=== PATIENT | female | born 1990 | race Caucasian/White ===

== ENCOUNTER 2017-06-03 22:52 | Emergency (ER) | payer BC, OTHER ==
[~2017-06-03] VITALS: Ht 168.9 cm; Wt 75.5 kg
[2017-06-03 23:05] VITALS: O2SAT 97; Ht 168.9 cm; Wt 75.5 kg
[2017-06-03 23:54] LABS: BASO % 0.6 %; BASO ABS # 0.03 K/uL (0-0.2); COMPLETE YES; EOS % 4.4 %; HEMATOCRIT 35.2 % (37-47); MEAN CELL VOLUME 86.3 fL (80-100); MEAN CORPUSCULAR HEMOGLOBIN 30.4 pg (25-34); MEAN CORPUSCULAR HGB CONC 35.2 g/dl (32-36); MEAN PLATELET VOLUME 9.4 fL (7.4-10.4); MONO % 10.4 %; NEUT % 36.6 %; PLATELET COUNT 215 K/uL (130-400); RED BLOOD COUNT 4.08 M/uL (4.2-5.4); WHITE BLOOD COUNT 5.21 K/uL (4.8-10.8)
[2017-06-04] MEDS ORDERED: SODIUM CHLORIDE 0.9% 1000ML 1,000 ML IV STA (00:02)
[2017-06-04 00:20] LABS: URINE APPEARANCE CLEAR (CLEAR); URINE BILIRUBIN NEG (NEG); URINE COLOR YELLOW; URINE NITRITE NEG (NEG); URINE PH 5.5 (4.5-7.5); URINE SPECIFIC GRAVITY 1.013 (1.000-1.030); UROBILINOGEN NEG (NEG)
[2017-06-04 00:21] LABS: ALT/SGPT 33 U/L (12-78); AST/SGOT 19 U/L (15-37); BLOOD UREA NITROGEN 10 mg/dl (7-18); BUN/CREATININE RATIO 12.6 (10-20); CALCIUM 7.8 mg/dl (8.5-10.1); CARBON DIOXIDE 24 mmol/L (21-32); CHLORIDE 110 mmol/L (98-107); CREATININE 0.78 mg/dl (0.60-1.20); GLUCOSE 120 mg/dl (70-99); POTASSIUM 3.7 mmol/L (3.5-5.1); SODIUM 142 mmol/L (136-145)
[2017-06-04 00:21] LABS: MANUAL MICROSCOPIC REQUIRED? NO; REVIEW REQ? NO
[2017-06-04 00:31] LABS: ALKALINE PHOSPHATASE 66 U/L (45-117)
[2017-06-04] MEDS ORDERED: CETI10TA84 PO (00:48)
[2017-06-04] MEDS ORDERED: ETON1IMP2 EP (00:49)
[2017-06-04] MEDS ORDERED: LACT3000 PO (00:52)
[2017-06-04 00:53] VITALS: BP 101/55; PULSE 81; O2SAT 100
[2017-06-04] MEDS ORDERED: ALBU18002 INH (00:53)
--- NOTE | 2017-06-04 08:55 | EMERGENCY ROOM VISIT NOTE ---
History Report prepared by Selena: Daylin Chung Under the Supervision of: Dr. Angeli Shelley D.O. First contact with patient: 23:06 Chief Complaint: SYNCOPE Stated Complaint: SYNCOPE, DIZZINESS History of Present Illness The patient is a 26 year old female who presents to the Emergency Room with complaints of an episode of syncope occurring prior to arrival. The patient states that she was at [employer] when she passed out. She reports that she was sitting in the bench and just leaned into the corner. She states that she tried to say she wasn't feeling well, but never actually said it. Per her , the patient was sitting there with her eyes open, but wasn't responding. He states that she then proceeded to vomit all over herself. He reports that he then asked if she could hear him. He reports that she responded yes, but then was unresponsive again. The patient states that she has a history of this occurring with the first day of her period. She states that she no longer gets her period due to the form of control she is on. She reports that the last time she passed out was a month ago, although she does not remember it. She states that she was at her 's coworker's home and felt it start to come on. She reports that she laid down on the porch, but never remembers losing consciousness. The reports that she did. The patient states that before that, she hadn't passed out since 2009. The patient states that she always has a warning before going out. She reports that in past episodes it didn't come on so fast and that she never vomited with them before. She notes that this time she felt lightheaded before it and has noticed it increasing over the last two days. The patient denies feeling lightheaded now. She states that she currently feels "strange" and notes that she is shivering although she is not cold. The patient denies ever having bladder incontinence, a family history of this, and changing positions this evening when she lost consciousness. Source of History: patient, spouse/significant other Onset: prior to arrival Position: other (global) Quality: other (global) Timing: other (episode) Associated Symptoms: + vomiting Note: The patient complains of shivering. The patient denies bladder incontinence and feeling currently lightheaded. Review of Systems See HPI for pertinent positives & negatives. A total of 10 systems reviewed and were otherwise negative. Past Medical & Surgical Medical Problems: (1) Hx of syncope Family History Patient reports no known family medical history. Social History Smoking Status: Never Smoker Marital Status: Housing Status: lives with significant other Occupation Status: [employer] student Current/Historical Medications Scheduled Cetirizine (Zyrtec), 10 MG PO DAILY Etonogestrel (Nexplanon), EP CONTINOUS Scheduled PRN Albuterol Sulfate (Proair Respiclick), 2 PUFFS INH QID PRN for SOB/Wheezing Lactase (Lactaid), 3,000 UNITS PO DAILY PRN for LACTOSE INTOLERANCE Allergies Coded Allergies: Coconut (Verified Allergy, Intermediate, "THROAT FEELS FUNNY", 06/04/17) Physical Exam Vital Signs Date Time Temp Pulse Resp B/P (MAP) Pulse Ox O2 Delivery O2 Flow Rate FiO2 06/04/17 00:53 81 18 101/55 100 Room Air 06/04/17 00:30 81 18 132/77 97 Room Air 06/03/17 23:47 81 18 132/77 97 Room Air 06/03/17 23:05 97 Room Air 06/03/17 23:05 61 18 113/61 97 Room Air 81 116/65 85 113/73 06/03/17 23:05 85 18 113/73 97 Room Air 06/03/17 22:59 65 Physical Exam HEENT: Head - normocephalic and atraumatic Pupils are equal, round, and reactive to light. Extraocular eye muscles are intact, and sclera are anicteric. Nose - moist nasal mucosa without discharge. Mouth - moist buccal mucosa. Oropharynx is nonerythematous and there is no tonsillar exudate or edema noted. Neck: Supple; no JVD, nuchal rigidity, cervical lymphadenopathy. Heart: Regular rate and rhythm. There is a normal S1 and S2 with no murmurs, clicks, or gallops appreciated. Lungs: Clear to auscultation bilaterally with no wheezes, rales, or rhonchi. Abdomen: Soft, completely nontender, nondistended, with good bowel sounds. There are no palpable pulsatile masses or hepatosplenomegaly. There is no guarding, rigidity, or rebound noted. Extremities: No evidence of cyanosis, clubbing, or edema. There are easily palpable peripheral pulses. Skin: warm and dry with good turgor and no rashes. Medical Decision & Procedures Laboratory Results 06/03/17 23:46 Red Blood Count 4.08, Mean Corpuscular Volume 86.3, Mean Corpuscular Hemoglobin 30.4, Mean Corpuscular Hemoglobin Concent 35.2, Mean Platelet Volume 9.4, Neutrophils (%) (Auto) 36.6, Lymphocytes (%) (Auto) 48.0, Monocytes (%) (Auto) 10.4, Eosinophils (%) (Auto) 4.4, Basophils (%) (Auto) 0.6, Neutrophils # (Auto ) 1.91, Lymphocytes # (Auto) 2.50, Monocytes # (Auto) 0.54, Eosinophils # (Auto ) 0.23, Basophils # (Auto) 0.03 06/03/17 23:46 Test 06/03/17 23:46 06/04/17 00:09 White Blood Count 5.21 K/uL (4.8-10.8) Red Blood Count 4.08 M/uL (4.2-5.4) Hemoglobin 12.4 g/dL (12.0-16.0) Hematocrit 35.2 % (37-47) Mean Corpuscular Volume 86.3 fL (80-100) Mean Corpuscular Hemoglobin 30.4 pg (25-34) Mean Corpuscular Hemoglobin Concent 35.2 g/dl (32-36) Platelet Count 215 K/uL (130-400) Mean Platelet Volume 9.4 fL (7.4-10.4) Neutrophils (%) (Auto) 36.6 % Lymphocytes (%) (Auto) 48.0 % Monocytes (%) (Auto) 10.4 % Eosinophils (%) (Auto) 4.4 % Basophils (%) (Auto) 0.6 % Neutrophils # (Auto) 1.91 K/uL (1.4-6.5) Lymphocytes # (Auto) 2.50 K/uL (1.2-3.4) Monocytes # (Auto) 0.54 K/uL (0.11-0.59) Eosinophils # (Auto) 0.23 K/uL (0-0.5) Basophils # (Auto) 0.03 K/uL (0-0.2) RDW Standard Deviation 37.2 fL (36.4-46.3) RDW Coefficient of Variation 11.8 % (11.5-14.5) Immature Granulocyte % (Auto) 0.0 % Immature Granulocyte # (Auto) 0.00 K/uL (0.00-0.02) Anion Gap 8.0 mmol/L (3-11) Est Creatinine Clear Calc Drug Dose 116.7 ml/min Estimated GFR () 123.3 Estimated GFR (Non- 106.4 BUN/Creatinine Ratio 12.6 (10-20) Calcium Level 7.8 mg/dl (8.5-10.1) Total Bilirubin 0.4 mg/dl (0.2-1) Direct Bilirubin < 0.1 mg/dl (0-0.2) Aspartate Amino Transf (AST/SGOT) 19 U/L (15-37) Alanine Aminotransferase (ALT/SGPT) 33 U/L (12-78) Alkaline Phosphatase 66 U/L (45-117) Troponin I < 0.015 ng/ml (0-0.045) Total Protein 6.4 gm/dl (6.4-8.2) Albumin 3.6 gm/dl (3.4-5.0) Thyroid Stimulating Hormone (TSH) 2.070 uIu/ml (0.300-4.500) Urine Color YELLOW Urine Appearance CLEAR (CLEAR) Urine pH 5.5 (4.5-7.5) Urine Specific [place] 1.013 (1.000-1.030) Urine Protein NEG (NEG) Urine Glucose (UA) NEG (NEG) Urine Ketones NEG (NEG) Urine Occult Blood NEG (NEG) Urine Nitrite NEG (NEG) Urine Bilirubin NEG (NEG) Urine Urobilinogen NEG (NEG) Urine Leukocyte Esterase TRACE (NEG) Urine WBC (Auto) 1-5 /hpf (0-5) Urine RBC (Auto) 0-4 /hpf (0-4) Urine Hyaline Casts (Auto) 1-5 /lpf (0-5) Urine Epithelial Cells (Auto) 10-20 /lpf (0-5) Urine Bacteria (Auto) NEG (NEG) Urine Test NEG (NEG) Laboratory results per my review. Medications Administered Medications (Trade) Dose Ordered Sig/Lilo Route Start Time Stop Time Status Last Admin Dose Admin Sodium Chloride 1,000 ml @ 999 mls/hr Q1H1M STAT IV 06/04/17 00:02 06/04/17 01:02 DC 06/04/17 00:06 999 MLS/HR Procedure 0002: Ordered NSS 1000 ml @ 999 mls/hr IV. ECG Indication: syncope Rate (beats per minute): 66 Rhythm: normal sinus Findings: no acute ischemic change, no ectopy ED Course 231: Past medical records reviewed. The patient was evaluated in room B3B. A complete history and physical exam was performed. The nurse performed orthostatics and she has negative orthostatic vital signs. A 12 EKG was obtained as described above. Labs were drawn as above. 0002: Ordered NSS 1000 ml @ 999 mls/hr IV. 0052: Upon reevaluation, the patient is feeling much better. She states that she just got her period. She reports that she just had the control placed three months ago and prior to that was on the pill. I discussed findings and results with her. She verbalized agreement of the treatment plan. The patient was discharged home. Medical Decision The patient is a 26 year old female who presents to the Emergency Room with complaints of an episode of syncope occurring prior to arrival. Differential diagnoses include seizure, vasovagal syncope, cardiac dysrhythmia, dehydration. LABS: TSH 2.0 Normal LFTs Glucose 120 Normal renal function Urine Negative Urinalysis had none Normal white count Stable H&H The patient describes a long history of syncopal events surrounding the first day of her menstrual cycle. The patient believes that is what has occurred again this evening. She describes a very long history of medical testing for these episodes of syncope when she was younger. I have encouraged the patient to follow-up with her PCP as well as neurology 3 guards the episodes of syncope. She should not drive until she has follow-up. Impression Primary Impression: Syncope Scribe Attestation The scribe's documentation has been prepared under my direction and personally reviewed by me in its entirety. I confirm that the note above accurately reflects all work, treatment, procedures, and medical decision making performed by me. Departure Information Dispostion Home / Self-Care Referrals No Doctor, Assigned (PCP) Forms HOME CARE DOCUMENTATION FORM, IMPORTANT VISIT INFORMATION Patient Instructions My [facility] Additional Instructions Rest. Follow up with PCP, gynecology, and Neurology Return to the ER if you have more episodes of passing out. No driving until follow up with Neuro Problem Qualifiers Primary Impression: Syncope Syncope type: unspecified Qualified Codes: R55 - Syncope and collapse
== END 2017-06-04 01:18 | disposition home or self-care (01) ==
LOC: EDBD 22:52 → C.EDB 22:53
DX: R55 Syncope and collapse (principal); R11.10 Vomiting, unspecified

== ENCOUNTER 2023-08-13 05:30 | Inpatient (IN) ==
[2023-08-13] MEDS ORDERED: LACTATED RINGER'S 1,000 ML IV ONE (07:49)
[2023-08-13] MEDS ORDERED: BUTORPHANOL TARTRATE 1 MG/ML VIAL IV PRN (07:49)
[2023-08-13] MEDS ORDERED: LACTATED RINGER'S 1,000 ML IV PRN ×2 (07:49→11:39)
--- NOTE | 2023-08-13 08:33 | History & Physical Report ---
Date of Service August 13, 2023 Assessment & Plan (1) Encounter for supervision of normal : Plan: currently in prodrome phase of labor and she is exhausted as the ctns are strong enough to prevent adequate rest will try IV fluids and IV stadol now - recheck after 2 hours to see if any change History of Present Illness Primary Care Provider: Sachin Chopra DO Patient is a 32 yo female EDC 08/13/23 who presents with regular contractions since 1400 yesterday. no SPROM or bloody show. GBS- negative otherwise has been uncomplicated. She did have a 24 hour stomach virus 5 days ago but has been trying to keep up with po intake. Allergies Allergy/AdvReac Type Severity Reaction Status Date / Time coconut Allergy Intermediate "THROAT Verified 08/08/23 08:48 FEELS FUNNY" Home Medications Medication Instructions Recorded Confirmed Type albuterol sulfate 2 puff inhalation UNKNOWN PRN 12/26/22 08/13/23 History Bronchospasm prenat.vits,zenaida,[id number] 1 tab PO DAILY 12/26/22 08/13/23 History breast pump #1 ea 03/28/23 08/08/23 Rx Patient History Medical History Asthma History of chicken pox Surgical History S/P wisdom tooth extraction Family History (Updated 12/26/22 @ 08:56 by Adri Motley) Father Diabetes Mother Myocardial infarction, Onset Age: 52 Grandfather (Maternal) Myocardial infarction Grandmother (Maternal) Stroke Denies family history of Ovarian cancer Breast cancer Colorectal cancer Social History (Updated 12/26/22 @ 08:58 by Adri Motley) Smoking Status: Never smoker Do You Dip or Chew Tobacco: No; Hx Alcohol Use: No Hx Substance Use: No Preferred Language: Italian District Supervisor Required: No Beliefs That Will Affect Care: None marital status: marital status details: Deangelo Richard (29) [phone] Current Living Situation: Spouse Current Living Situation Comment: lives with spouse, cat-spouse changing litter current occupational status: employed 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 Other Information That Helps Us Care for You: No Feels Safe at Home: Yes Review of Systems All systems reviewed & are unremarkable except as noted in HPI & below Physical Exam Constitutional: WD/WN, vitals as above Psychiatric: A+Ox3, euthymic affect Genitourinary: OB Exam Abdomen: + vertex, + estimated weight (8-9 pounds) and + regular contractions (Q 5 minutes) Manual OB Exam: + cervical dilation fingertip, + cervical effacement 80%, + station 0 (very posterior) and + amniotic fluid (intact) OB Exam Monitor Tracing: + external FHT monitor used, + external uterine monitor used, + category I and + normal FHT variability Results & Data Vital Signs (Past 12 Hours) Vital Signs Temp Pulse Resp BP 08/13/23 07:38 65 107/71 08/13/23 06:06 57 L 109/70 08/13/23 05:58 97.9 F 20 Code Status & VTE Plan VTE Prophylaxis Plan VTE Prophylaxis will be ordered: No Coding Level of Care Code 81275 OP VST EST LOW 20-29 MIN Diagnoses Encounter for supervision of normal Z34.90
[2023-08-13] MEDS ORDERED: LIDOCAINE 1% LOCAL 20 ML VIAL INFIL PRN (11:39)
[2023-08-13] MEDS ORDERED: OXYTOCIN 30 UNITS/NSS 30 UNITS/500 ML BAG IV PRN ×2 (11:39→14:59)
--- NOTE | 2023-08-13 11:47 | Labor Progress Brief Note ---
Date of Service August 13, 2023 Subjective Reason For Note: Routine Evaluation she got some rest with the IV stadol. contractions are now every 3-4 minutes cervix exam: 4cm/90/0 posterior Review of Systems All systems reviewed & are unremarkable except as noted in HPI & below Assessment & Plan (1) Encounter for supervision of normal : Plan: good cervical change so will admit to L&D she will ambulate for now- plan to AROM when cervix is reachable or after epidural analgesia anticipate vaginal Physical Exam Genitourinary: OB Exam Monitor Tracing: + external FHT monitor used, + external uterine monitor used, + category I and + normal FHT variability Results & Data Vital Signs (Past 12 Hours) Vital Signs Temp Pulse Resp BP 08/13/23 11:31 60 106/64 08/13/23 07:38 65 107/71 08/13/23 06:06 57 L 109/70 08/13/23 05:58 97.9 F 20
[2023-08-13] MEDS ORDERED: ALBUTEROL HFA 8 GM INHALER INH PRN (11:53)
[2023-08-13 12:24] LABS: Hematocrit (blood only) 37.6 % (37.0-47.0); Hemoglobin 12.9 g/dl (12.0-16.0); Mean Corpuscular Hemoglobin 30.8 pg (25.0-34.0); Mean Corpuscular Hgb Conc 34.3 g/dL (32.0-36.0); Mean Corpuscular Volume 89.7 fL (80.0-100.0); Mean Platelet Volume 9.7 fL (9.4-12.4); Platelet Count 229 K/uL (130-400); RDW Coefficient of Variation 12.2 % (11.5-14.5); RDW Standard Deviation 39.8 fL (36.4-46.3); Red Blood Count 4.19 M/uL (4.20-5.40); White Blood Count 8.73 K/ul (4.8-10.8)
--- NOTE | 2023-08-13 15:02 | Labor Progress Brief Note ---
Date of Service August 13, 2023 Subjective Reason For Note: Routine Evaluation contractions have spaced out since AROM FHT's reassuring will start pitocin augmentation Assessment & Plan Admission and Anticipated Discharge Date Admission Date: August 13, 2023 Results & Data Vital Signs (Past 12 Hours) Vital Signs Temp Pulse Resp BP 08/13/23 13:59 55 L 97/67 L 08/13/23 11:31 60 106/64 08/13/23 07:38 65 107/71 08/13/23 06:06 57 L 109/70 08/13/23 05:58 97.9 F 20
[2023-08-13] MEDS ORDERED: ePHEDrine sulfate 50 MG/ML AMP ONE (19:04)
[2023-08-13] MEDS ORDERED: fentANYL 2 MCG/ML BUPIVacaine 0.125%-NSS 100ML BAG ONE (19:04)
[2023-08-13] MEDS ORDERED: fentaNYL citrate PF 100 MCG/2 ML VIAL ONE (19:04)
[2023-08-13] MEDS ORDERED: SODIUM CHLORIDE 0.9% PF INJ 10 ML VIAL ONE (19:04)
[2023-08-13] MEDS ORDERED: BUPIVACAINE 0.25% PF 30 ML VIAL ONE (19:05)
[2023-08-13] MEDS ORDERED: LIDOCAINE 2%/EPINEPHRINE 1:200,000 20 ML PF ONE (19:05)
--- NOTE | 2023-08-13 19:24 | Anesthesiology Consultation ---
Date of Service August 13, 2023 Assessment & Plan Chart Review Chart Review: Acceptable Risk for Labor Epidural Consults Requested none History Height/Weight Height: 5 ft 6 in Weight: 87.09 kg Allergies Allergy/AdvReac Type Severity Reaction Status Date / Time coconut Allergy Intermediate "THROAT Verified 08/08/23 08:48 FEELS FUNNY" Medications Home Medications Medication Instructions Recorded Confirmed Last Taken albuterol sulfate 2 puff inhalation UNKNOWN PRN 12/26/22 08/13/23 Unknown Bronchospasm prenat.vits,zenaida,[id number] 1 tab PO DAILY 12/26/22 08/13/23 08/13/23 04:00 breast pump #1 ea 03/28/23 08/08/23 Unknown Active Medications Generic Name Dose Route Start Last Admin Trade Name Freq PRN Reason Stop Dose Admin Butorphanol Tartrate 1 mg 08/13/23 07:49 08/13/23 08:22 Butorphanol Tartrate 1 Mg/Ml Vial IV 09/12/23 07:48 1 mg Q2H PRN Administration Pain Lactated Ringer's 1,000 mls @ 125 mls/hr 08/13/23 07:49 08/13/23 16:13 Lr IV 09/12/23 07:48 125 mls/hr .Q8H PRN Infusion L&D Protocol Protocol Oxytocin 30 units in 500 mls @ 4 mls/hr 08/13/23 14:59 08/13/23 19:02 Pitocin 30 Units/Nss IV 08/15/23 14:58 0.24 units/hr .Q24H PRN 4 mls/hr Labor Induction/Augmentation Titration Protocol 0.24 UNITS/HR Past Medical History Medical History Asthma History of chicken pox Past Family History Family History (Updated 12/26/22 @ 08:56 by Adri Motley) Father Diabetes Mother Myocardial infarction, Onset Age: 52 Grandfather (Maternal) Myocardial infarction Grandmother (Maternal) Stroke Denies family history of Ovarian cancer Breast cancer Colorectal cancer Past Surgical History Surgical History S/P wisdom tooth extraction Social History Smoking Status: Never smoker Do You Dip or Chew Tobacco: No Hx Alcohol Use: No Hx Substance Use: No Physical Exam Vital Signs Last Vital Signs Temp 36.7 C 08/13/23 18:15 Pulse 47 L 08/13/23 17:23 Resp 20 08/13/23 16:19 BP 103/64 08/13/23 17:23 Constitutional WD/WN, vitals as above Psychiatric A+Ox3, euthymic affect Genitourinary OB Exam Abdomen: + vertex, + estimated weight (8-9 pounds) and + regular contractions (Q 5 minutes) Manual OB Exam: + cervical dilation + fingertip, + cervical effacement + 80%, + station + 0 (very posterior) and + amniotic fluid (intact) OB Exam Monitor Tracing: + external FHT monitor used, + external uterine monitor used, + category I and + normal FHT variability Testing Laboratory Results 08/13/23 12:09
[2023-08-13] MEDS ORDERED: LIDOCAINE 2%/EPINEPHRINE 1:200,000 20 ML PF EPI STA (19:50)
[2023-08-13] MEDS ORDERED: SODIUM CHLORIDE 0.9% PF INJ 10 ML VIAL EPI STA (19:50)
[2023-08-13] MEDS ORDERED: fentaNYL citrate PF 100 MCG/2 ML VIAL EPI PRN (19:50)
[2023-08-13] MEDS ORDERED: fentaNYL citrate PF 100 MCG/2 ML VIAL EPI STA (19:50)
[2023-08-13] MEDS ORDERED: diphenhydrAMINE 50 MG/ML VIAL IV PRN (19:50)
[2023-08-13] MEDS ORDERED: LIDOCAINE 2% MPF LOCAL 5 ML VIAL EPI PRN (19:50)
[2023-08-13] MEDS ORDERED: ePHEDrine sulfate 50 MG/ML AMP IV PRN (19:50)
[2023-08-13] MEDS ORDERED: fentANYL 2 MCG/ML BUPIVacaine 0.125%-NSS 100ML BAG EPI PRN (19:50)
[2023-08-13] MEDS ORDERED: ROPIVACAINE 0.5% PF 5 MG/ML 20 ML VIAL EPI PRN (19:50)
[2023-08-13] MEDS ORDERED: NALBUPHINE HCL 5 MG in SYRINGE 0 ML IV PRN (19:50)
[2023-08-13] MEDS ORDERED: BUPIVACAINE 0.25% PF 30 ML VIAL EPI PRN (19:50)
[2023-08-13] MEDS ORDERED: SODIUM CHLORIDE 0.9% PF INJ 10 ML VIAL EPI PRN (19:50)
[2023-08-13] MEDS ORDERED: NALOXONE HCL 0.4 MG/1 ML VIAL/CARP IV PRN (19:50)
[2023-08-13] MEDS ORDERED: NALOXONE HCL 1 MG in SODIUM CHLORIDE 0.9% 1,000 ML IV PRN (19:50)
[2023-08-13] MEDS ORDERED: BUPIVACAINE 0.25% PF 30 ML VIAL EPI STA (19:50)
[2023-08-14] MEDS ORDERED: DIPHTHERIA/TETANUS/PERTUSSIS Vaccine (Tdap, Age 7+yrs) 0.5mL SYR/VL IM ONE (00:21)
[2023-08-14] MEDS ORDERED: oxyCODONE/ACETAMINOPHEN 5mg/325mg TAB PO PRN (00:21)
[2023-08-14] MEDS ORDERED: ACETAMINOPHEN 325 MG TAB PO PRN (00:21)
[2023-08-14] MEDS ORDERED: bisacodyL 10 MG SUPP PR PRN (00:21)
[2023-08-14] MEDS ORDERED: OXYTOCIN 30 UNITS/NSS 30 UNITS/500 ML BAG IV PRN (00:21)
[2023-08-14] MEDS ORDERED: HYDROCORTISONE ACETATE 25 MG SUPP PR PRN (00:21)
[2023-08-14] MEDS ORDERED: BENZOCAINE 20% SPRY 85 APPLN/85 GM CAN EXT PRN (00:21)
--- NOTE | 2023-08-14 00:26 | Delivery Summary ---
Vaginal Delivery Summary Date of Service August 14, 2023 Vaginal Delivery Summary and 2nd Degree LAC Patient is a 32-year-old 2 para 0-0-1-0 female EDC of 08/13/2023 who presented with prodromal labor on the morning of 08/13/2023. She eventually made cervical change after 1 dose of IV Stadol. Membranes were then ruptured for thin meconium stained fluid. She did need Pitocin augmentation of her labor. She received effective epidural analgesia. She progressed to full dilation and pushed effectively over intact perineum for delivery of a viable male infant. After the head was delivered a loose nuchal cord was reduced prior to delivering the rest the infant. He was vigorous crying and moving all 4 limbs. After 1 minute, the cord was clamped and cut. After cord blood was obtained, the placenta was expressed intact with a three-vessel cord. A second- degree perineal laceration was repaired with 3-0 chromic in usual fashion. Estimated blood loss 200 cc. Mother and were doing well after delivery. [facility] [place] Vaginal Delivery Charge Delivery Type Details: and 2nd Degree LAC
[2023-08-14] MEDS: IBUPROFEN 600 MG TAB PO PRN ×3 (02:17→19:54)
--- NOTE | 2023-08-14 07:46 | Anesthesia Procedure Note ---
Date of Service August 14, 2023 Anesthesia Post Epidural Note Vital Signs Vital Signs: Temp Pulse Resp BP Pulse Ox O2 Del Method 36.5 C 75 16 124/77 97 Room Air 08/14/23 03:00 08/14/23 03:00 08/14/23 03:00 08/14/23 03:00 08/13/23 23:48 08/14/23 03:00 Pain Intensity Back: Pain Intensity: 2 Notes Mental Status: alert / awake / arousable and participated in evaluation Nausea / Vomiting: adequately controlled Pain: adequately controlled Airway Patency, RR, SpO2: stable & adequate BP & HR: stable & adequate Hydration State: stable & adequate Neuraxial Anesthesia: was administered and sensory block is resolving Anesthetic Complications: no major complications apparent Epidural: Removed without complications and With tip intact
--- NOTE | 2023-08-14 07:53 | Obstetrical Progress Note ---
Date of Service August 14, 2023 Assessment & Plan (1) Encounter for care and examination after delivery: satisfactory course continue current care plan Subjective Ambulation: ambulating normally Voiding: no voiding problems Passing Gas:: Yes Diet Tolerance:: regular diet Lochia:: Moderate Feeding Type:: breast feeding tailbone is sore but managing the pain with ibuprofen Review of Systems All systems reviewed & are unremarkable except as noted in HPI & below Physical Exam Constitutional WD/WN, vitals as above Psychiatric A+Ox3, euthymic affect Genitourinary OB Exam Abdomen: + fundal height Fundus: + firm and + relation to umbilicus (1 below U) Results & Data Vital Signs (Past 12 Hours) Vital Signs Temp Pulse Pulse Resp BP BP Pulse Ox 08/14/23 03:00 97.7 F 75 16 124/77 08/14/23 02:06 75 109/69 08/14/23 01:51 78 116/72 08/14/23 01:36 82 114/80 08/14/23 01:21 67 108/73 08/14/23 01:06 68 111/77 08/14/23 00:51 77 118/74 08/14/23 00:36 70 114/65 08/14/23 00:21 60 116/65 08/14/23 00:06 109/67 08/13/23 23:55 60 111/71 08/13/23 23:48 68 97 08/13/23 23:43 59 L 97 08/13/23 23:40 57 L 106/66 08/13/23 23:38 76 96 08/13/23 23:33 79 97 08/13/23 23:28 57 L 98 08/13/23 23:27 70 91 08/13/23 23:23 94 H 99 08/13/23 23:18 69 98 08/13/23 23:13 60 100 08/13/23 23:11 57 L 114/77 08/13/23 23:08 65 98 08/13/23 23:03 79 98 08/13/23 22:58 61 97 08/13/23 22:55 55 L 120/72 08/13/23 22:53 51 L 96 08/13/23 22:48 55 L 96 08/13/23 22:43 52 L 96 08/13/23 22:40 58 L 122/71 08/13/23 22:38 52 L 95 08/13/23 22:33 51 L 95 08/13/23 22:28 48 L 96 08/13/23 22:25 97.7 F 52 L 114/68 08/13/23 22:23 50 L 96 08/13/23 22:18 52 L 97 08/13/23 22:13 56 L 97 08/13/23 22:12 51 L 113/66 08/13/23 22:08 55 L 93 08/13/23 22:03 70 95 08/13/23 22:00 57 L 93 08/13/23 21:58 56 L 96 08/13/23 21:56 60 99/54 L 08/13/23 21:53 57 L 97 08/13/23 21:48 55 L 97 08/13/23 21:43 57 L 97 08/13/23 21:40 55 L 95/51 L 08/13/23 21:38 57 L 96 08/13/23 21:33 55 L 97 08/13/23 21:28 59 L 96 08/13/23 21:25 54 L 90/54 L 08/13/23 21:23 56 L 97 08/13/23 21:18 58 L 97 08/13/23 21:13 63 97 08/13/23 21:10 61 98/57 L 08/13/23 21:08 60 97 08/13/23 21:03 56 L 97 08/13/23 20:58 54 L 97 08/13/23 20:55 57 L 91/50 L 08/13/23 20:53 63 97 08/13/23 20:48 59 L 98 08/13/23 20:43 69 98 08/13/23 20:42 86 94 08/13/23 20:41 70 121/77 08/13/23 20:38 52 L 96 08/13/23 20:33 53 L 97 08/13/23 20:28 53 L 96 08/13/23 20:25 49 L 115/65 08/13/23 20:23 52 L 97 08/13/23 20:18 56 L 97 08/13/23 20:13 62 97 08/13/23 20:11 54 L 117/69 08/13/23 20:08 60 97 08/13/23 20:03 55 L 100 08/13/23 19:58 60 100 08/13/23 19:55 60 116/72 08/13/23 19:53 55 L 100 08/13/23 19:52 60 110/67 08/13/23 19:49 22 08/13/23 19:49 98.4 F 56 L 22 113/68 08/13/23 19:48 63 100 O2 Del Method 08/14/23 03:00 Room Air 08/14/23 02:06 08/14/23 01:51 08/14/23 01:36 08/14/23 01:21 08/14/23 01:06 08/14/23 00:51 08/14/23 00:36 08/14/23 00:21 08/14/23 00:06 08/13/23 23:55 08/13/23 23:48 08/13/23 23:43 08/13/23 23:40 08/13/23 23:38 08/13/23 23:33 08/13/23 23:28 08/13/23 23:27 08/13/23 23:23 08/13/23 23:18 08/13/23 23:13 08/13/23 23:11 08/13/23 23:08 08/13/23 23:03 08/13/23 22:58 08/13/23 22:55 08/13/23 22:53 08/13/23 22:48 08/13/23 22:43 08/13/23 22:40 08/13/23 22:38 08/13/23 22:33 08/13/23 22:28 08/13/23 22:25 08/13/23 22:23 08/13/23 22:18 08/13/23 22:13 08/13/23 22:12 08/13/23 22:08 08/13/23 22:03 08/13/23 22:00 08/13/23 21:58 08/13/23 21:56 08/13/23 21:53 08/13/23 21:48 08/13/23 21:43 08/13/23 21:40 08/13/23 21:38 08/13/23 21:33 08/13/23 21:28 08/13/23 21:25 08/13/23 21:23 08/13/23 21:18 08/13/23 21:13 08/13/23 21:10 08/13/23 21:08 08/13/23 21:03 08/13/23 20:58 08/13/23 20:55 08/13/23 20:53 08/13/23 20:48 08/13/23 20:43 08/13/23 20:42 08/13/23 20:41 08/13/23 20:38 08/13/23 20:33 08/13/23 20:28 08/13/23 20:25 08/13/23 20:23 08/13/23 20:18 08/13/23 20:13 08/13/23 20:11 08/13/23 20:08 08/13/23 20:03 08/13/23 19:58 08/13/23 19:55 08/13/23 19:53 08/13/23 19:52 08/13/23 19:49 08/13/23 19:49 08/13/23 19:48
[2023-08-14] MEDS: DOCUSATE SODIUM 100 MG CAP PO SCH ×2 (08:37→20:54)
[2023-08-14] MEDS: PRENATAL VITAMIN 1 TAB PO SCH (08:37)
[2023-08-14 23:43] VITALS: PULSE 55
[2023-08-15] MEDS: IBUPROFEN 600 MG TAB PO PRN (04:16)
[2023-08-15 06:08] LABS: Hematocrit (blood only) 32.4 % (37.0-47.0); Hemoglobin 11.2 g/dl (12.0-16.0); Mean Corpuscular Hemoglobin 31.2 pg (25.0-34.0); Mean Corpuscular Hgb Conc 34.6 g/dL (32.0-36.0); Mean Corpuscular Volume 90.3 fL (80.0-100.0); Mean Platelet Volume 9.6 fL (9.4-12.4); Platelet Count 201 K/uL (130-400); RDW Coefficient of Variation 12.6 % (11.5-14.5); RDW Standard Deviation 41.2 fL (36.4-46.3); Red Blood Count 3.59 M/uL (4.20-5.40); White Blood Count 9.72 K/ul (4.8-10.8)
--- NOTE | 2023-08-15 07:26 | Obstetrical Progress Note ---
Date of Service August 15, 2023 Assessment & Plan (1) Encounter for care and examination after delivery: Plan Doing well. Plan d/c home. Instructions reviewed. Day #:: 2 Subjective Ambulation: ambulating normally Voiding: no voiding problems Passing Gas:: Yes Diet Tolerance:: regular diet Lochia:: Small Feeding Type:: breast feeding Feeling well today. Physical Exam Constitutional WD/WN, vitals as above Cardiovascular Extremities: no calf tenderness and no edema Gastrointestinal (Abdomen) soft, nt, nd ff/nt at u Psychiatric A+Ox3, euthymic affect Results & Data Vital Signs (Past 12 Hours) Vital Signs Temp Pulse Resp BP Pulse Ox O2 Del Method 08/14/23 23:43 36.7 C 55 L 16 117/79 97 Room Air 08/14/23 20:30 36.8 C 67 18 114/77 98 Room Air
[2023-08-15] MEDS: PRENATAL VITAMIN 1 TAB PO SCH (09:14)
[2023-08-15] MEDS: DOCUSATE SODIUM 100 MG CAP PO SCH (09:14)
[2023-08-15 09:30] VITALS: BP 116/75; RESP 18; TEMP 97.5; O2SAT 99
[2023-08-15] MEDS ORDERED: bisacodyL 5 MG TABEC PO SCH (20:00)
== END 2023-08-15 12:45 | disposition home health service (06) | DRG 807 ==
LOC: OPB 05:30 → 4S1 05:31 → 4E2 08-14 02:45